=== PATIENT | female | born 1990 | race African-American/Black ===

== ENCOUNTER 2017-07-25 21:31 | Emergency (ER) | payer OTHER ==
[~2017-07-25] VITALS: Ht 160 cm; Wt 53.0 kg
[2017-07-25 21:47] VITALS: BP 110/73; PULSE 83; RESP 14; TEMP 97.9; O2SAT 99
--- NOTE | 2017-07-25 22:16 | PD ---
HPI Chief Complaint: Psychiatric Symptoms Time Seen by Provider: 21:46 Travel History International Travel<30 days: No Contact w/Intl Traveler<30days: No Traveled to known affect area: No History of Present Illness HPI 26-year-old female presents to emergency department under Recinos act by PD. The patient recently moved to the [facility] from [facility] approximately 3 months ago. She states that she moved to the area to start a new life. 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 They sent not been progressing the way she was hoping. She has been feeling increasingly depressed. She had notified a friend that she was feeling depressed and having thoughts of cutting. Patient has had a history of cutting in the past but has not cut recently. She denies any true suicidal ideation. No homicidal ideation. No toxic ingestions. No recent illness. Denies . PFSH Past Medical History Medical History: Denies Significant Hx Diminished Hearing: No Integumentary: Yes (scars on arms and legs) Tetanus Vaccination: < 5 Years Influenza Vaccination: No ?: Not LMP: 07-21-17 Past Surgical History Surgical History: No Previous Surgery Social History Alcohol Use: No Tobacco Use: No Substance Use: No Allergies-Medications (Allergen,Severity, Reaction): Uncoded Allergies: SULFA (Allergy, Severe, 07/25/17) Reported Meds & Prescriptions Reported Meds & Active Scripts Active No Active Prescriptions or Reported Medications Review of Systems General / Constitutional: No: Fever Eyes: No: Visual changes HENT: No: Headaches Cardiovascular: No: Chest Pain or Discomfort Respiratory: No: Shortness of Breath Gastrointestinal: No: Abdominal Pain Genitourinary: No: Dysuria Musculoskeletal: No: Pain Skin: No Rash Neurologic: No: Weakness Psychiatric: Positive: Depression, Mood Disorder, No: Anxiety, Suicidal Ideations, Disorder of Thought, Substance Abuse, Homicidal Ideation Endocrine: No: Polydipsia Hematologic/Lymphatic: No: Easy Bruising Physical Exam Narrative GENERAL: Well-nourished, well-developed patient. SKIN: Warm and dry. Patient has old scars on both forearms and both anterior thighs from cutting in the past. Nothing new. HEAD: Normocephalic and atraumatic. EYES: No scleral icterus. No injection or drainage. ENT: No nasal drainage noted. Mucous membranes pink. Airway patent. NECK: Supple, trachea midline. Moves head freely without obvious discomfort. CARDIOVASCULAR: Regular rate and rhythm without murmurs, gallops, or rubs. RESPIRATORY: Breath sounds equal bilaterally. No accessory muscle use. GASTROINTESTINAL: Abdomen soft, non-tender, nondistended. EXTREMITIES: No cyanosis or edema. BACK: Nontender without obvious deformity. No CVA tenderness. NEURO: Patient is alert and oriented. no sensorimotor deficits. Nonfocal. Normal speech. PSYCH: No delusions. No auditory or visual hallucinations. Data Data Last Documented VS Vital Signs Date Time Temp Pulse Resp B/P (MAP) Pulse Ox O2 Delivery O2 Flow Rate FiO2 07/25/17 21:47 97.9 83 14 110/73 (85) 99 Orders Orders Complete Blood Count With Diff (07/25/17 21:57) Comprehensive Metabolic Panel (07/25/17 21:57) Ed Urine Pregnancytest Poc (07/25/17 21:57) Psych Screen (07/25/17 21:57) Drug Screen, Random Urine (07/25/17 21:57) Alcohol (Ethanol) (07/25/17 21:57) Salicylates (Aspirin) (07/25/17 21:57) Tylenol (Acetaminophen) (07/25/17 21:57) Labs Laboratory Tests Test 07/25/17 22:00 White Blood Count 8.4 TH/MM3 Red Blood Count 4.66 MIL/MM3 Hemoglobin 13.2 GM/DL Hematocrit 39.7 % Mean Corpuscular Volume 85.2 FL Mean Corpuscular Hemoglobin 28.2 PG Mean Corpuscular Hemoglobin Concent 33.1 % Red Cell Distribution Width 13.6 % Platelet Count 255 TH/MM3 Mean Platelet Volume 10.0 FL Neutrophils (%) (Auto) 47.3 % Lymphocytes (%) (Auto) 39.8 % Monocytes (%) (Auto) 9.3 % Eosinophils (%) (Auto) 2.7 % Basophils (%) (Auto) 0.9 % Neutrophils # (Auto) 4.0 TH/MM3 Lymphocytes # (Auto) 3.3 TH/MM3 Monocytes # (Auto) 0.8 TH/MM3 Eosinophils # (Auto) 0.2 TH/MM3 Basophils # (Auto) 0.1 TH/MM3 CBC Comment DIFF FINAL Differential Comment Blood Urea Nitrogen 18 MG/DL Creatinine 0.76 MG/DL Random Glucose 85 MG/DL Total Protein 7.7 GM/DL Albumin 3.7 GM/DL Calcium Level 8.8 MG/DL Alkaline Phosphatase 70 U/L Aspartate Amino Transf (AST/SGOT) 17 U/L Alanine Aminotransferase (ALT/SGPT) 21 U/L Total Bilirubin 0.3 MG/DL Sodium Level 139 MEQ/L Potassium Level 4.1 MEQ/L Chloride Level 107 MEQ/L Carbon Dioxide Level 24.0 MEQ/L Anion Gap 8 MEQ/L Estimat Glomerular Filtration Rate 111 ML/MIN Salicylates Level LESS THAN 1.7 MG/DL Urine Opiates Screen NEG Acetaminophen Level LESS THAN 2.0 MCG/ML Urine Barbiturates Screen NEG Urine Amphetamines Screen NEG Urine Benzodiazepines Screen NEG Urine Cocaine Screen NEG Urine Cannabinoids Screen NEG Ethyl Alcohol Level LESS THAN 3 MG/DL MDM Medical Decision Making Medical Screen Exam Complete: Yes Emergency Medical Condition: Yes Medical Record Reviewed: Yes Interpretation(s) Laboratory Tests Test 07/25/17 22:00 White Blood Count 8.4 TH/MM3 Red Blood Count 4.66 MIL/MM3 Hemoglobin 13.2 GM/DL Hematocrit 39.7 % Mean Corpuscular Volume 85.2 FL Mean Corpuscular Hemoglobin 28.2 PG Mean Corpuscular Hemoglobin Concent 33.1 % Red Cell Distribution Width 13.6 % Platelet Count 255 TH/MM3 Mean Platelet Volume 10.0 FL Neutrophils (%) (Auto) 47.3 % Lymphocytes (%) (Auto) 39.8 % Monocytes (%) (Auto) 9.3 % Eosinophils (%) (Auto) 2.7 % Basophils (%) (Auto) 0.9 % Neutrophils # (Auto) 4.0 TH/MM3 Lymphocytes # (Auto) 3.3 TH/MM3 Monocytes # (Auto) 0.8 TH/MM3 Eosinophils # (Auto) 0.2 TH/MM3 Basophils # (Auto) 0.1 TH/MM3 CBC Comment DIFF FINAL Differential Comment Blood Urea Nitrogen 18 MG/DL Creatinine 0.76 MG/DL Random Glucose 85 MG/DL Total Protein 7.7 GM/DL Albumin 3.7 GM/DL Calcium Level 8.8 MG/DL Alkaline Phosphatase 70 U/L Aspartate Amino Transf (AST/SGOT) 17 U/L Alanine Aminotransferase (ALT/SGPT) 21 U/L Total Bilirubin 0.3 MG/DL Sodium Level 139 MEQ/L Potassium Level 4.1 MEQ/L Chloride Level 107 MEQ/L Carbon Dioxide Level 24.0 MEQ/L Anion Gap 8 MEQ/L Estimat Glomerular Filtration Rate 111 ML/MIN Salicylates Level LESS THAN 1.7 MG/DL Urine Opiates Screen NEG Acetaminophen Level LESS THAN 2.0 MCG/ML Urine Barbiturates Screen NEG Urine Amphetamines Screen NEG Urine Benzodiazepines Screen NEG Urine Cocaine Screen NEG Urine Cannabinoids Screen NEG Ethyl Alcohol Level LESS THAN 3 MG/DL Differential Diagnosis MDM: High Differential diagnoses: Schizophrenia, schizoaffective disorder, bipolar, anxiety, depression, adjustment reaction, mood disorder NOS, ODD, depressive disorder NOS, dementia, dementia with agitation, psychosis NOS, substance induced mood disorder, DMDD, Asperger syndrome, infection,electrolyte abnormality, malingering. Narrative Course Mental health screening discussed with the patient. Psychiatric screen ordered. The patient's been medically clear. This is medical clearance for psychiatric admission Diagnosis Primary Impression: Medical clearance for psychiatric admission Scripts No Active Prescriptions or Reported Meds Condition: Stable James Minor Jul 25, 2017 22:16
[2017-07-25 23:15] LABS: BASOPHIL # 0.1 TH/MM3 (0-0.2); BASOPHIL % 0.9 % (0.0-2.0); EOSINOPHIL # 0.2 TH/MM3 (0-0.4); EOSINOPHIL % 2.7 % (0.0-4.0); HEMATOCRIT 39.7 % (35.0-46.0); HEMO FLAGS DIFF FINAL; LYMPH % 39.8 % (9.0-44.0); LYMPHOCYTE # 3.3 TH/MM3 (1.0-4.8); MEAN CELL VOLUME 85.2 FL (80.0-100.0); MEAN CORPUSCULAR HEMOGLOBIN 28.2 PG (27.0-34.0); MEAN CORPUSCULAR HGB CONC 33.1 % (32.0-36.0); MONO % 9.3 % (0.0-8.0); NEUT % 47.3 % (16.0-70.0); PLATELET COUNT 255 TH/MM3 (150-450); RED BLOOD COUNT 4.66 MIL/MM3 (4.00-5.30); RED CELL DISTRIBUTION WIDTH 13.6 % (11.6-17.2); WHITE BLOOD COUNT 8.4 TH/MM3 (4.0-11.0)
[2017-07-25 23:43] LABS: ALT (GPT) 21 U/L (10-53)
[2017-07-25 23:44] LABS: ANION GAP 8 MEQ/L (5-15)
[2017-07-25 23:46] LABS: ALKALINE PHOSPHATASE 70 U/L (45-117); AST (GOT) 17 U/L (15-37); BLOOD UREA NITROGEN 18 MG/DL (7-18); CHLORIDE 107 MEQ/L (98-107); GLOMERULAR FILTRATION RATE 111 ML/MIN (>89); POTASSIUM 4.1 MEQ/L (3.5-5.1); SODIUM (NA) 139 MEQ/L (136-145); TOTAL BILIRUBIN ADULT 0.3 MG/DL (0.2-1.0)
[2017-07-25 23:48] LABS: ACETAMINOPHEN LESS THAN 2.0 MCG/ML (10.0-30.0); ALCOHOL LESS THAN 3 MG/DL (0-5)
[2017-07-26 04:58] VITALS: BP 112/60; PULSE 70; RESP 18; O2SAT 98
[2017-07-26 10:36] VITALS: BP 105/74; PULSE 90; RESP 18; TEMP 98; O2SAT 100
[2017-07-26] MEDS ORDERED: PROZ20CA11 PO (11:06)
[2017-07-26] MEDS ORDERED: LORA-392 PO (11:07)
--- NOTE | 2017-07-26 11:11 | PD ---
History of Present Illness Chief Complaint: Psychiatric Symptoms Time Seen by Provider: 11:00 Travel History International Travel<30 Days: No Contact w/Intl Traveler<30days: No Known affected area: No Legal Status Legal Status: Recinos Act Recinos Act Signed By: Sukhdeep Blackwood History of Present Illness: 26-year-old female brought in under a Recinos act with reports of depression. Patient denies suicidal or homicidal ideation, plan or intent. She does admit to depressive symptoms and she would like to start an antidepressant as well as anti-anxiety medicine. This physician agreed to prescribed Prozac and Ativan after informed consent was given. Patient is willing to follow up on an outpatient basis with Andriy Farah. She has no psychotic symptoms and her cognition is intact. She is verbally gene for safety and she is competent to do so. [facility] Past Medical History Medical History: Denies Significant Hx Diminished Hearing: No Integumentary: Yes (scars on arms and legs) Tetanus Vaccination: < 5 Years Influenza Vaccination: No ?: Not LMP: 07-21-17 Past Surgical History Surgical History: No Previous Surgery Psychiatric History Psychiatric History Hx Psychiatric Treatment: PATIENT DENIES History of Inpatient Treatment: No Guns or firearms in home: No Social History Hx Alcohol Use: No Hx Tobacco Use: No Hx Substance Use: No Hx of Substance Use Treatment: No Allergies-Medications (Allergen,Severity, Reaction): Uncoded Allergies: SULFA (Allergy, Severe, 07/25/17) Reported Meds & Prescriptions Reported Meds & Active Scripts Active Ativan (Lorazepam) 0.5 Mg Tab 0.5 Mg PO DAILY PRN Prozac (Fluoxetine HCl) 20 Mg Cap 20 Mg PO DAILY Review of Systems Except as stated in HPI: all other systems reviewed are Neg Mental Status Examination Appearance: Appropriate Consciousness: Alert Orientation: x4 Motor Activity: Normal gait Speech: Unremarkable Language: Adequate Fund of Knowledge: Adequate Attention and Concentration: Adequate Memory: Unremarkable Mood: Sad Affect: Sad Thought Process & Associations: Intact Thought Content: Appropriate Hallucination Type: None Delusion Type: None Suicidal Ideation: No Suicidal Plan: No Suicidal Intention: No Homicidal Ideation: No Homicidal Plan: No Homicidal Intention: No Insight: Adequate Judgment: Adequate MDM Medical Decision Making Medical Record Reviewed: Yes Assessment/Plan Patient interviewed at bedside. Medical record reviewed. Case discussed with nurse Stefania. Patient does not meet Recinos act criteria and does not meet criteria for involuntary psychiatric hospitalization. She does wish to start antidepressant medicine and this was prescribed in the form of Prozac. She also wished for antianxiety medicine and this was prescribed in the form of Ativan. Informed consent was given. Patient was also given referral to Andriy Farah for follow up. Orders Orders Complete Blood Count With Diff (07/25/17 21:57) Comprehensive Metabolic Panel (07/25/17 21:57) Ed Urine Pregnancytest Poc (07/25/17 21:57) Psych Screen (07/25/17 21:57) Drug Screen, Random Urine (07/25/17 21:57) Alcohol (Ethanol) (07/25/17 21:57) Salicylates (Aspirin) (07/25/17 21:57) Tylenol (Acetaminophen) (07/25/17 21:57) Diet Regular Basic (07/26/17 Breakfast) Diet Regular Basic (07/26/17 Lunch) Results Vital Signs Date Time Temp Pulse Resp B/P (MAP) Pulse Ox O2 Delivery O2 Flow Rate FiO2 07/26/17 10:36 98.0 90 18 105/74 (84) 100 Room Air 07/26/17 04:58 70 18 112/60 (77) 98 Room Air 07/25/17 21:47 97.9 83 14 110/73 (85) 99 Laboratory Tests Test 07/25/17 22:00 White Blood Count 8.4 Red Blood Count 4.66 Hemoglobin 13.2 Hematocrit 39.7 Mean Corpuscular Volume 85.2 Mean Corpuscular Hemoglobin 28.2 Mean Corpuscular Hemoglobin Concent 33.1 Red Cell Distribution Width 13.6 Platelet Count 255 Mean Platelet Volume 10.0 Neutrophils (%) (Auto) 47.3 Lymphocytes (%) (Auto) 39.8 Monocytes (%) (Auto) 9.3 Eosinophils (%) (Auto) 2.7 Basophils (%) (Auto) 0.9 Neutrophils # (Auto) 4.0 Lymphocytes # (Auto) 3.3 Monocytes # (Auto) 0.8 Eosinophils # (Auto) 0.2 Basophils # (Auto) 0.1 CBC Comment DIFF FINAL Differential Comment Blood Urea Nitrogen 18 Creatinine 0.76 Random Glucose 85 Total Protein 7.7 Albumin 3.7 Calcium Level 8.8 Alkaline Phosphatase 70 Aspartate Amino Transf (AST/SGOT) 17 Alanine Aminotransferase (ALT/SGPT) 21 Total Bilirubin 0.3 Sodium Level 139 Potassium Level 4.1 Chloride Level 107 Carbon Dioxide Level 24.0 Anion Gap 8 Estimat Glomerular Filtration Rate 111 Salicylates Level LESS THAN 1.7 Urine Opiates Screen NEG Acetaminophen Level LESS THAN 2.0 Urine Barbiturates Screen NEG Urine Amphetamines Screen NEG Urine Benzodiazepines Screen NEG Urine Cocaine Screen NEG Urine Cannabinoids Screen NEG Ethyl Alcohol Level LESS THAN 3 Diagnosis Primary Impression: Adjustment disorder with depressed mood Prescriptions Lorazepam (Ativan) 0.5 Mg Tab 0.5 MG PO DAILY Y for ANXIETY AND/OR AGITATION, #30 TAB 0 Refills Prov: Wade Galarza MD 07/26/17 Fluoxetine (Prozac) 20 Mg Cap 20 MG PO DAILY, #30 CAP 0 Refills Prov: Wade Galarza MD 07/26/17 Condition: Stable Wade Galarza MD Jul 26, 2017 11:11
--- NOTE | 2017-07-26 11:48 | PD ---
Physical Exam Date Seen by Provider: Jul 26, 2017 Narrative 26 red female presents to emergency department with alleged suicidal ideations and wanting to hurt herself. Patient apparently states that she has had a lot of like changes and is disappointed with her current progress. Patient was medically cleared to see Dr. Galarza, psychiatrist. Does not appear that she will harm herself outpatient and that she was just feeling depressed. Dr. Galarza states does not meet couch act criteria as she currently denies suicidal or homicidal ideations. Is scheduled to follow-up with Andriy Farah and will take medications as prescribed. She is cleared to go home and close follow-up. Data Data Last Documented VS Vital Signs Date Time Temp Pulse Resp B/P (MAP) Pulse Ox O2 Delivery O2 Flow Rate FiO2 07/26/17 10:36 98.0 90 18 105/74 (84) 100 Room Air Orders Orders Complete Blood Count With Diff (07/25/17 21:57) Comprehensive Metabolic Panel (07/25/17 21:57) Ed Urine Pregnancytest Poc (07/25/17 21:57) Psych Screen (07/25/17 21:57) Drug Screen, Random Urine (07/25/17 21:57) Alcohol (Ethanol) (07/25/17 21:57) Salicylates (Aspirin) (07/25/17 21:57) Tylenol (Acetaminophen) (07/25/17 21:57) Diet Regular Basic (07/26/17 Breakfast) Diet Regular Basic (07/26/17 Lunch) Labs Laboratory Tests Test 07/25/17 22:00 White Blood Count 8.4 TH/MM3 Red Blood Count 4.66 MIL/MM3 Hemoglobin 13.2 GM/DL Hematocrit 39.7 % Mean Corpuscular Volume 85.2 FL Mean Corpuscular Hemoglobin 28.2 PG Mean Corpuscular Hemoglobin Concent 33.1 % Red Cell Distribution Width 13.6 % Platelet Count 255 TH/MM3 Mean Platelet Volume 10.0 FL Neutrophils (%) (Auto) 47.3 % Lymphocytes (%) (Auto) 39.8 % Monocytes (%) (Auto) 9.3 % Eosinophils (%) (Auto) 2.7 % Basophils (%) (Auto) 0.9 % Neutrophils # (Auto) 4.0 TH/MM3 Lymphocytes # (Auto) 3.3 TH/MM3 Monocytes # (Auto) 0.8 TH/MM3 Eosinophils # (Auto) 0.2 TH/MM3 Basophils # (Auto) 0.1 TH/MM3 CBC Comment DIFF FINAL Differential Comment Blood Urea Nitrogen 18 MG/DL Creatinine 0.76 MG/DL Random Glucose 85 MG/DL Total Protein 7.7 GM/DL Albumin 3.7 GM/DL Calcium Level 8.8 MG/DL Alkaline Phosphatase 70 U/L Aspartate Amino Transf (AST/SGOT) 17 U/L Alanine Aminotransferase (ALT/SGPT) 21 U/L Total Bilirubin 0.3 MG/DL Sodium Level 139 MEQ/L Potassium Level 4.1 MEQ/L Chloride Level 107 MEQ/L Carbon Dioxide Level 24.0 MEQ/L Anion Gap 8 MEQ/L Estimat Glomerular Filtration Rate 111 ML/MIN Salicylates Level LESS THAN 1.7 MG/DL Urine Opiates Screen NEG Acetaminophen Level LESS THAN 2.0 MCG/ML Urine Barbiturates Screen NEG Urine Amphetamines Screen NEG Urine Benzodiazepines Screen NEG Urine Cocaine Screen NEG Urine Cannabinoids Screen NEG Ethyl Alcohol Level LESS THAN 3 MG/DL MDM Supervised Visit with IDRIS: Yes Diagnosis Primary Impression: Adjustment disorder with depressed mood Scripts Lorazepam (Ativan) 0.5 Mg Tab 0.5 MG PO DAILY Y for ANXIETY AND/OR AGITATION, #30 TAB 0 Refills Prov: Wade Galarza MD 07/26/17 Fluoxetine (Prozac) 20 Mg Cap 20 MG PO DAILY, #30 CAP 0 Refills Prov: Wade Galarza MD 07/26/17 Condition: Stable Linda Andrade Jul 26, 2017 11:48
== END 2017-07-26 12:15 | disposition home or self-care (01) ==
LOC: NEPD 21:31 → NEPJ 07-26 12:15
DX: F43.21 Adjustment disorder with depressed mood (principal); R45.851 Suicidal ideations; Z79.899 Other long term (current) drug therapy
CPT/HCPCS: 80053; 80307; 84703; 85025; 99284